=== PATIENT | male | born 1975 | race Caucasian/White ===

== ENCOUNTER 2018-01-08 10:32 | Outpatient (CLI) | payer OTHER | END 2018-01-08 23:59 | disposition home or self-care (01) | LOC: RAD 10:32 | PROVIDERS: ATTEND Family Medicine | DX: K70.10 Alcoholic hepatitis without ascites (principal) | CPT/HCPCS: 76700 ==

== ENCOUNTER 2018-03-16 13:04 | Emergency (ER) | payer OTHER ==
[~2018-03-16] VITALS: Ht 5871 cm; Wt 81.0 kg
[2018-03-16 13:29] VITALS: BP 199/74
[2018-03-16] MEDS ORDERED: normal saline 1000ML IV soln IVB ONE (14:00)
[2018-03-16] MEDS ORDERED: gabapentin 300mg capsule PO ONE (14:05)
[2018-03-16] MEDS ORDERED: LORazepam 2 mg/ml vial IV ONE (14:05)
[2018-03-16] MEDS ORDERED: ondansetron/PF 4mg/2ml inj IV ONE (14:05)
[2018-03-16 14:17] LABS: BASOPHILS % (AUTO) 0.2 % (0-1); EOSINOPHILS # (AUTO) 0.1 X10'3 (0-0.9); HEMATOCRIT 37.3 % (42.0-52.0); HEMOGLOBIN 12.8 g/dl (14.0-17.9); LYMPHOCYTES # (AUTO) 0.7 X10'3 (1.1-4.8); LYMPHOCYTES % (AUTO) 10.8 % (21-51); MEAN CORPUSCULAR HEMOGLOBIN 32.8 PG (27.0-31.0); MEAN CORPUSCULAR HGB CONC 34.2 % (33.0-36.5); MONOCYTES # (AUTO) 0.7 X10'3 (0-0.9); MONOCYTES % (AUTO) 9.7 % (2-12); NEUTROPHILS # (AUTO) 5.3 X10'3 (1.8-7.7); NEUTROPHILS % (AUTO) 78.3 % (42-75); PLATELET COUNT 137 X10'3 (140-440); RED BLOOD COUNT 3.89 X10'6 (4.70-6.10); RED CELL DISTRIBUTION WIDTH 13.7 % (11.5-14.5); WHITE BLOOD COUNT 6.8 X10'3 (4.5-11.0)
[2018-03-16 14:27] LABS: ALBUMIN 3.7 G/DL (3.4-5.0); ANION GAP 13 (8-16); BLOOD UREA NITROGEN 14 MG/DL (7-18); BUN/CREATININE RATIO 12.5 (5.4-32.0); CALCIUM 8.8 MG/DL (8.5-10.1); CHLORIDE 104 MMOL/L (99-107); CREATININE 1.12 MG/DL (0.60-1.10); GLUCOSE 126 MG/DL (70-104); MAGNESIUM 1.9 MG/DL (1.5-2.4); SODIUM 143 MMOL/L (135-145); TOTAL CARBON DIOXIDE 25.9 MMOL/L (24-32); eGFR 72 ML/MIN
[2018-03-16] MEDS ORDERED: GABA-532 PO (15:02)
[2018-03-16] MEDS ORDERED: ONDA4TAB6 PO (15:03)
== END 2018-03-16 16:13 | disposition home or self-care (01) ==
LOC: ER 13:04
DX: F10.239 Alcohol dependence with withdrawal, unspecified (principal)
CPT/HCPCS: 36415; 80048; 83735; 85025; 96361; 96374; 96375; 99285; J2060; J2405; J7030

== ENCOUNTER 2018-08-15 20:16 | Emergency (ER) | payer OTHER ==
[~2018-08-15] VITALS: Ht 177.8 cm; Wt 77.3 kg
[~2018-08-15 20:16] MED LIST: GABA-532 PO; ONDA4TAB6 PO
[2018-08-15] MEDS ORDERED: LORazepam 2 mg/ml vial IV ONE (20:50)
[2018-08-15] MEDS ORDERED: midazolam 100mg in NS 100ml 100 ML IV ONE (20:55)
[2018-08-15] MEDS ORDERED: chlorproMAZINE 25mg tablet PO ONE (20:55)
[2018-08-15] MEDS ORDERED: temazepam 15mg capsule PO PRN (21:00)
[2018-08-15 21:04] LABS: BASOPHILS % (AUTO) 0.5 % (0-1); EOSINOPHILS # (AUTO) 0.1 X10'3 (0-0.9); EOSINOPHILS % (AUTO) 2.5 % (0-6); HEMATOCRIT 35.1 % (42.0-52.0); HEMOGLOBIN 12.2 g/dl (14.0-17.9); LYMPHOCYTES # (AUTO) 1.2 X10'3 (1.1-4.8); LYMPHOCYTES % (AUTO) 21.7 % (21-51); MEAN CORPUSCULAR HEMOGLOBIN 34.4 PG (27.0-31.0); MEAN CORPUSCULAR HGB CONC 34.6 % (33.0-36.5); MEAN CORPUSCULAR VOLUME 99.3 FL (78-98); MEAN PLATELET VOLUME 7.1 FL (7.4-10.4); MONOCYTES # (AUTO) 0.4 X10'3 (0-0.9); MONOCYTES % (AUTO) 8.4 % (2-12); NEUTROPHILS # (AUTO) 3.6 X10'3 (1.8-7.7); NEUTROPHILS % (AUTO) 66.9 % (42-75); PLATELET COUNT 162 X10'3 (140-440); RED BLOOD COUNT 3.54 X10'6 (4.70-6.10); RED CELL DISTRIBUTION WIDTH 15.1 % (11.5-14.5); WHITE BLOOD COUNT 5.3 X10'3 (4.5-11.0)
[2018-08-15 21:20] LABS: ALANINE AMINOTRANSFERASE 77 U/L (12-78); ALBUMIN 3.4 G/DL (3.4-5.0); ALBUMIN/GLOBULIN RATIO 1.1 (1.1-1.5); ALKALINE PHOSPHATASE 83 IU/L (46-116); ANION GAP 9 (8-16); ASPARTATE AMINO TRANSFERASE 68 U/L (10-37); BILIRUBIN,TOTAL 0.8 MG/DL (0.1-1.0); BLOOD UREA NITROGEN 19 MG/DL (7-18); BUN/CREATININE RATIO 20.9 (5.4-32.0); CALCIUM 7.9 MG/DL (8.5-10.1); CHLORIDE 102 MMOL/L (99-107); CREATININE 0.91 MG/DL (0.60-1.10); GLUCOSE 94 MG/DL (70-104); POTASSIUM 3.9 MMOL/L (3.5-5.1); SODIUM 139 MMOL/L (135-145); TOTAL CARBON DIOXIDE 28.3 MMOL/L (24-32); TOTAL PROTEIN 6.5 G/DL (6.4-8.2); eGFR > 90 ML/MIN
[2018-08-15 21:30] LABS: PARTIAL THROMBOPLASTIN TIME 24 SECONDS (22-32); PROTHROMBIN TIME 10.5 SECONDS (9.0-12.0)
[2018-08-15] MEDS ORDERED: haloperidol lactate 5mg/ml inj IM ONE (21:50)
[2018-08-15] MEDS ORDERED: gabapentin 300mg capsule PO ONE (22:00)
[2018-08-15 22:37] LABS: AMYLASE 85 U/L (25-115); LIPASE 186 U/L (73-393); MAGNESIUM 1.6 MG/DL (1.5-2.4)
[2018-08-15 22:52] VITALS: BP 150/96
[2018-08-15] MEDS ORDERED: dextrose 5%-1/2 normal saline 1,000 ML IV SCH (23:07)
[2018-08-15] MEDS ORDERED: haloperidol 5mg tablet PO PRN (23:10)
[2018-08-15] MEDS ORDERED: HYDROcodone/acetaminophen 10/325mg tab PO PRN (23:10)
[2018-08-15] MEDS ORDERED: HYDROcodone/acetaminophen 5mg/325mg tablet PO PRN (23:10)
[2018-08-15] MEDS ORDERED: folic acid inj. 2 MG, thiamine inj. 100 MG, MVI, adult No.4 with vit. K 10 ML in dextro... IV SCH ×4 (23:10)
[2018-08-15] MEDS ORDERED: mag hydrox/Alum hydrox/simeth 30ml oral suspension PO PRN ×2 (23:10)
[2018-08-15] MEDS ORDERED: morphine 2 MG/ML inj. syringe IV PRN ×2 (23:10)
[2018-08-15] MEDS ORDERED: metoclopramide 5 mg/ml inj IV PRN (23:10)
[2018-08-15] MEDS ORDERED: HYDROmorphone 1 mg/ml syringe IV PRN ×2 (23:10)
[2018-08-15] MEDS ORDERED: dextrose 50%-water 50ml dispensing syringe IV PRN (23:10)
[2018-08-15] MEDS ORDERED: diphenhydrAMINE 25mg capsule PO PRN (23:10)
[2018-08-15] MEDS ORDERED: acetaminophen 325mg tablet PO PRN ×2 (23:10)
[2018-08-15] MEDS ORDERED: ondansetron/PF 4mg/2ml inj IV PRN (23:10)
[2018-08-15] MEDS ORDERED: cloNIDine 0.1 MG/24 HOUR patch (7 day patch) TD SCH (23:10)
[2018-08-15] MEDS ORDERED: cyclobenzaprine 10mg tablet PO PRN (23:10)
[2018-08-15] MEDS ORDERED: magnesium 1gm/100ml D5W IVPB 100 ML IV ONE (23:10)
[2018-08-15] MEDS ORDERED: magnesium hydroxide 30ml (MOM) UD suspension PO PRN (23:10)
[2018-08-15] MEDS ORDERED: diphenhydrAMINE 50 mg/ml inj IV PRN (23:10)
[2018-08-15] MEDS ORDERED: haloperidol lactate 5mg/ml inj IM PRN (23:10)
[2018-08-15] MEDS ORDERED: acetaminophen 650mg rectal suppository RC PRN (23:10)
[2018-08-15] MEDS ORDERED: bisacodyl 10mg suppository rectal RC PRN (23:10)
[2018-08-15] MEDS ORDERED: dicyclomine 10 MG capsule PO PRN (23:10)
[2018-08-15] MEDS ORDERED: atenolol 50mg tablet PO SCH (23:10)
[2018-08-15] MEDS ORDERED: loperamide 2mg capsule PO PRN (23:10)
[2018-08-16] MEDS ORDERED: docusate sod 100mg capsule PO SCH (08:00)
[2018-08-16] MEDS ORDERED: heparin, porcine 5000 units/ml vial SQ SCH (08:00)
[2018-08-17] MEDS ORDERED: LORazepam 2 mg/ml vial IV PRN (23:10)
[2018-08-19] MEDS ORDERED: LORazepam 1 MG tablet PO PRN (23:10)
== END 2018-08-15 23:21 | disposition left against medical advice (07) ==
LOC: ER 20:16
DX: F10.239 Alcohol dependence with withdrawal, unspecified (principal); Y90.9 Presence of alcohol in blood, level not specified; Z79.899 Other long term (current) drug therapy
CPT/HCPCS: 36415; 71045; 80053; 82150; 83690; 83735; 84484; 85025; 85610; 85730; 93005; 96372; 96374; 99285; J1630; J2060; J3411; J3490; J7030; J7060; Q0161

== ENCOUNTER 2018-08-20 14:30 | Emergency (ER) | payer OTHER ==
[~2018-08-20] VITALS: Ht 177.8 cm; Wt 78.2 kg
[2018-08-20] MEDS ORDERED: normal saline 1000ML IV soln IVB ONE (14:40)
[2018-08-20] MEDS ORDERED: thiamine 100mg/ml 2ml inj. IV ONE (14:40)
[2018-08-20] MEDS ORDERED: LORazepam 2 mg/ml vial IV ONE ×5 (14:40→16:40)
[2018-08-20] MEDS ORDERED: folic acid 1mg/0.2ml inj IV ONE (14:40)
[2018-08-20] MEDS ORDERED: nitroGLYCERIN 0.4mg SUBLingual tab SL PRN (14:40)
[2018-08-20] MEDS ORDERED: aspirin 81mg tab.chew PO ONE (14:40)
[2018-08-20] MEDS ORDERED: normal saline 1000ML IV soln IV ONE (14:45)
[2018-08-20] MEDS ORDERED: magnesium 1gm/100ml D5W IVPB 100 ML IV ONE (14:50)
[2018-08-20 15:08] LABS: BASOPHILS % (AUTO) 0.9 % (0-1); EOSINOPHILS # (AUTO) 0.1 X10'3 (0-0.9); HEMATOCRIT 37.5 % (42.0-52.0); LYMPHOCYTES # (AUTO) 1.6 X10'3 (1.1-4.8); LYMPHOCYTES % (AUTO) 29.1 % (21-51); MEAN CORPUSCULAR HEMOGLOBIN 34.7 PG (27.0-31.0); MEAN CORPUSCULAR HGB CONC 34.6 % (33.0-36.5); MEAN CORPUSCULAR VOLUME 100.2 FL (78-98); MEAN PLATELET VOLUME 6.8 FL (7.4-10.4); MONOCYTES # (AUTO) 0.7 X10'3 (0-0.9); MONOCYTES % (AUTO) 13.8 % (2-12); NEUTROPHILS # (AUTO) 2.9 X10'3 (1.8-7.7); NEUTROPHILS % (AUTO) 54.2 % (42-75); PLATELET COUNT 152 X10'3 (140-440); RED BLOOD COUNT 3.74 X10'6 (4.70-6.10); RED CELL DISTRIBUTION WIDTH 15.1 % (11.5-14.5); WHITE BLOOD COUNT 5.4 X10'3 (4.5-11.0)
[2018-08-20 15:25] LABS: ALANINE AMINOTRANSFERASE 86 U/L (12-78); ALBUMIN 3.9 G/DL (3.4-5.0); ALKALINE PHOSPHATASE 87 IU/L (46-116); ANION GAP 15 (8-16); ASPARTATE AMINO TRANSFERASE 91 U/L (10-37); BILIRUBIN,TOTAL 0.6 MG/DL (0.1-1.0); BLOOD UREA NITROGEN 18 MG/DL (7-18); CALCIUM 8.9 MG/DL (8.5-10.1); CHLORIDE 103 MMOL/L (99-107); GLUCOSE 99 MG/DL (70-104); POTASSIUM 4.3 MMOL/L (3.5-5.1); SODIUM 143 MMOL/L (135-145); TOTAL CARBON DIOXIDE 25.5 MMOL/L (24-32); TOTAL PROTEIN 7.7 G/DL (6.4-8.2); eGFR 82 ML/MIN
[2018-08-20 15:32] LABS: CREATINE KINASE 156 U/L (39-308); MAGNESIUM 1.9 MG/DL (1.5-2.4)
[2018-08-20] MEDS ORDERED: cloNIDine 0.1 mg tablet PO ONE (15:35)
[2018-08-20] MEDS ORDERED: LORA1TAB PO (17:22)
[2018-08-20] MEDS ORDERED: THI100T PO (17:22)
[2018-08-20] MEDS ORDERED: FOLI0.4T2 PO (17:22)
[2018-08-20 17:38] VITALS: BP 142/72
== END 2018-08-20 17:39 | disposition home or self-care (01) ==
LOC: ER 14:30
DX: F10.239 Alcohol dependence with withdrawal, unspecified (principal); E86.0 Dehydration; I10 Essential (primary) hypertension; E87.2 Acidosis; Z79.899 Other long term (current) drug therapy; Y90.9 Presence of alcohol in blood, level not specified
CPT/HCPCS: 36415; 71045; 80053; 82550; 82948; 83605; 83735; 83880; 84484; 85025; 93005; 96365; 96375; 96376; 99285; J2060; J3411; J3490; J7030

== ENCOUNTER 2019-06-16 13:58 | Emergency (ER) | payer OTHER ==
[~2019-06-16] VITALS: Ht 177.8 cm; Wt 70.0 kg
[2019-06-16 15:12] VITALS: BP 138/95
[2019-06-16 15:39] LABS: BASOPHILS # (AUTO) 0.1 X10'3 (0-0.2); EOSINOPHILS # (AUTO) 0.2 X10'3 (0-0.9); MONOCYTES # (AUTO) 0.9 X10'3 (0-0.9)
[2019-06-16 15:41] LABS: NEUTROPHILS # (AUTO) 1.9 X10'3 (1.8-7.7)
[2019-06-16 15:44] LABS: LYMPHOCYTES # (AUTO) 1.2 X10'3 (1.1-4.8); WHITE BLOOD COUNT 4.3 X10'3 (4.5-11.0)
[2019-06-16 15:46] LABS: BASOPHILS % (AUTO) 2.1 % (0-1); HEMATOCRIT 40.8 % (42.0-52.0); HEMOGLOBIN 14.1 g/dl (14.0-17.9); LYMPHOCYTES % (AUTO) 27.8 % (21-51); MEAN CORPUSCULAR HEMOGLOBIN 36.7 PG (27.0-31.0); MEAN CORPUSCULAR HGB CONC 34.6 g/dL (33.0-36.5); MEAN CORPUSCULAR VOLUME 106.1 FL (78-98); MONOCYTES % (AUTO) 20.5 % (2-12); NEUTROPHILS % (AUTO) 44.6 % (42-75); PLATELET COUNT 106 X10'3 (140-440); RED BLOOD COUNT 3.85 X10'6 (4.70-6.10); RED CELL DISTRIBUTION WIDTH 14.9 % (11.5-14.5)
[2019-06-16 15:55] LABS: ALANINE AMINOTRANSFERASE 263 U/L (12-78); ALBUMIN 3.6 G/DL (3.4-5.0); ALKALINE PHOSPHATASE 188 IU/L (46-116); ANION GAP 19 (8-16); ASPARTATE AMINO TRANSFERASE 428 U/L (10-37); BILIRUBIN,TOTAL 1.1 MG/DL (0.1-1.0); BLOOD UREA NITROGEN 7 MG/DL (7-18); CALCIUM 8.7 MG/DL (8.5-10.1); CHLORIDE 103 MMOL/L (99-107); CREATININE 0.87 MG/DL (0.60-1.10); GLUCOSE 107 MG/DL (70-104); POTASSIUM 3.3 MMOL/L (3.5-5.1); SODIUM 142 MMOL/L (135-145); TOTAL CARBON DIOXIDE 20.5 MMOL/L (24-32); TOTAL PROTEIN 7.3 G/DL (6.4-8.2); eGFR > 90 ML/MIN
[2019-06-16] MEDS ORDERED: LORazepam 2 mg/ml vial IM ONE (16:05)
[2019-06-16] MEDS ORDERED: normal saline 1000ML IV soln IVB ONE ×2 (16:05→17:45)
[2019-06-16 16:19] LABS: TOTAL CELLS COUNTED 100
[2019-06-16 16:20] LABS: PLATELET ESTIMATE DECREASED
[2019-06-16 16:29] LABS: ETHANOL 0.442 GM/DL (0.0-0.010)
[2019-06-16] MEDS ORDERED: thiamine 100mg tablet PO ONE (17:45)
[2019-06-16 18:52] LABS: CLARITY,URINE CLEAR (Clear); COLOR,URINE YELLOW (Yellow); GLUCOSE, URINE NEGATIVE (Neg); KETONES,URINE TRACE mg/dl (Neg); LEUKOCYTE ESTERASE ,URINE NEGATIVE (Neg); NITRITES, URINE NEGATIVE (Neg); OCCULT BLOOD,URINE NEGATIVE (Neg); PROTEIN,URINE TRACE mg/dl (Neg)
[2019-06-16 18:54] LABS: UA COLLECTION TYPE URINAL
[2019-06-16 19:02] LABS: BACTERIA,URINE NONE SEEN /HPF (Neg); HYALINE CASTS 0-3 /LPF (NEGATIVE); MUCUS STRANDS NONE SEEN /LPF (Neg); RBC,URINE NONE SEEN /HPF (0-2); SQUAMOUS EPITHELIAL CELL,UR NONE SEEN /LPF (FEW); WBC,URINE NONE SEEN /HPF (0-4)
--- NOTE | 2019-06-16 20:09 | NUR ---
PT STATES WANTING TO LEAVE AND I OBSERVED OT PULLED OUT HIS IV. NOT BLEEDING AND IV CATHETER TIP INTACT. ASKED PT TO STAY LONG ENOUHG FOR ME TO GET AMA PAPERS AND PT AGREED. CRN NOTIFIED
== END 2019-06-16 20:23 | disposition home or self-care (01) ==
LOC: ER 13:58
DX: F10.929 Alcohol use, unspecified with intoxication, unspecified (principal); R11.10 Vomiting, unspecified; Z79.899 Other long term (current) drug therapy; Y90.9 Presence of alcohol in blood, level not specified
CPT/HCPCS: 36415; 80053; 80320; 81001; 83930; 85025; 96360; 96361; 96372; 99283; J2060; J7030

== ENCOUNTER 2019-07-09 12:11 | Emergency (ER) | payer OTHER ==
[~2019-07-09] VITALS: Ht 177.8 cm; Wt 63.6 kg
[2019-07-09 12:58] LABS: BASOPHILS # (AUTO) 0.1 X10'3 (0-0.2); BASOPHILS % (AUTO) 1.9 % (0-1); EOSINOPHILS # (AUTO) 0.2 X10'3 (0-0.9); EOSINOPHILS % (AUTO) 4.2 % (0-6); HEMATOCRIT 38.1 % (42.0-52.0); HEMOGLOBIN 13.1 g/dl (14.0-17.9); LYMPHOCYTES # (AUTO) 1.2 X10'3 (1.1-4.8); LYMPHOCYTES % (AUTO) 25.4 % (21-51); MEAN CORPUSCULAR HEMOGLOBIN 37.7 PG (27.0-31.0); MEAN CORPUSCULAR HGB CONC 34.3 g/dL (33.0-36.5); MEAN CORPUSCULAR VOLUME 109.8 FL (78-98); MEAN PLATELET VOLUME 8.8 FL (7.4-10.4); MONOCYTES # (AUTO) 1.2 X10'3 (0-0.9); MONOCYTES % (AUTO) 25.9 % (2-12); NEUTROPHILS % (AUTO) 42.6 % (42-75); PLATELET COUNT 119 X10'3 (140-440); RED BLOOD COUNT 3.47 X10'6 (4.70-6.10); RED CELL DISTRIBUTION WIDTH 15.8 % (11.5-14.5); WHITE BLOOD COUNT 4.6 X10'3 (4.5-11.0)
[2019-07-09 13:08] LABS: ALANINE AMINOTRANSFERASE 319 U/L (12-78); ALBUMIN 3.5 G/DL (3.4-5.0); ALKALINE PHOSPHATASE 314 IU/L (46-116); ANION GAP 15 (8-16); ASPARTATE AMINO TRANSFERASE 571 U/L (10-37); BILIRUBIN,TOTAL 6.5 MG/DL (0.1-1.0); BLOOD UREA NITROGEN 7 MG/DL (7-18); BUN/CREATININE RATIO 7.3 (5.4-32.0); CALCIUM 9.8 MG/DL (8.5-10.1); CHLORIDE 96 MMOL/L (99-107); CREATININE 0.96 MG/DL (0.60-1.10); GLUCOSE 84 MG/DL (70-104); LIPASE 659 U/L (73-393); SODIUM 137 MMOL/L (135-145); TOTAL CARBON DIOXIDE 25.9 MMOL/L (24-32); eGFR 85 ML/MIN
[2019-07-09 13:10] LABS: ALBUMIN/GLOBULIN RATIO 0.9 (1.1-1.5); POTASSIUM 3.3 MMOL/L (3.5-5.1); TOTAL PROTEIN 7.5 G/DL (6.4-8.2)
[2019-07-09 13:17] LABS: TOTAL CELLS COUNTED 100
[2019-07-09 13:18] LABS: PLATELET ESTIMATE DECREASED
[2019-07-09 13:20] LABS: POLYCHROMASIA 1+; STOMATOCYTES 2+
[2019-07-09] MEDS ORDERED: normal saline 1000ML IV soln IVB ONE (13:50)
[2019-07-09 13:51] LABS: PARTIAL THROMBOPLASTIN TIME 25 SECONDS (22-32)
[2019-07-09 14:02] LABS: ETHANOL 0.108 GM/DL (0.0-0.010)
[2019-07-09 14:51] LABS: CLARITY,URINE SLIGHTLY CLOUDY (Clear); UA COLLECTION TYPE VOIDED
[2019-07-09 14:52] LABS: COLOR,URINE AMBER (Yellow)
[2019-07-09 14:58] LABS: MUCUS STRANDS MANY /LPF (Neg)
[2019-07-09 15:00] LABS: COARSE GRANULAR CAST 0-3 /LPF (NEGATIVE); HYALINE CASTS 0-3 /LPF (NEGATIVE); SQUAMOUS EPITHELIAL CELL,UR FEW /LPF (FEW); TRANSITIONAL EPI CELLS,URINE FEW /HPF
[2019-07-09 15:04] LABS: WBC,URINE 0-4 /HPF (0-4)
[2019-07-09 15:07] LABS: BACTERIA,URINE NONE SEEN /HPF (Neg); RBC,URINE 0-2 /HPF (0-2)
[2019-07-09] MEDS ORDERED: LORazepam 1 MG tablet PO ONE (15:45)
[2019-07-09] MEDS ORDERED: CHLO25CA10 PO (15:50)
[2019-07-09 15:59] VITALS: BP 146/98
== END 2019-07-09 16:05 | disposition home or self-care (01) ==
LOC: ER 12:11
DX: K29.20 Alcoholic gastritis without bleeding (principal); F10.10 Alcohol abuse, uncomplicated; Z88.8 Allergy status to other drugs, medicaments and biological substances; K70.10 Alcoholic hepatitis without ascites; Z79.899 Other long term (current) drug therapy; Y90.0 Blood alcohol level of less than 20 mg/100 ml
CPT/HCPCS: 36415; 71045; 76700; 80053; 80320; 81001; 82140; 83690; 85025; 85610; 85730; 86885; 86900; 86901; 93005; 96360; 96361; 99284; J7040